=== PATIENT | female | born 1960 | race Caucasian/White ===

== ENCOUNTER 2018-06-13 05:05 | Emergency (ER) | payer OTHER ==
[~2018-06-13] VITALS: Ht 157.5 cm; Wt 94.8 kg
[~2018-06-13 05:05] MED LIST: ALLO100T PO; AMB5 PO; AMLO2.5T PO; APIX1TAB3 PO; ASPCH81X PO; COEN1CAP7 PO; LANS30TA3 PO; LIRA18IN SQ; METF-384 PO; METO50TA16 PO; MULT-513 PO; PRAV40TA2 PO; SITA100T3 PO; VITA400C15 PO; VITACAP36 PO
[2018-06-13 05:13] VITALS: TEMP 37.2; Ht 157.5 cm; Wt 94.8 kg
[2018-06-13] MEDS ORDERED: ONDANSETRON INJ 2 MG/ML 2 ML VIAL IV STA (05:27)
[2018-06-13] MEDS ORDERED: KETOROLAC TROMETHAMINE 30 MG/ML VIAL IV STA (05:27)
[2018-06-13 05:46] LABS: BASO % 0.3 %; BASO ABS # 0.04 K/uL (0-0.2); EOS ABS # 0.25 K/uL (0-0.5); HEMATOCRIT 39.4 % (37-47); HEMOGLOBIN 13.7 g/dL (12.0-16.0); IG# 0.05 K/uL (0.00-0.02); LYMPH % 18.2 %; LYMPH ABS # 2.31 K/uL (1.2-3.4); MEAN CORPUSCULAR HEMOGLOBIN 29.9 pg (25-34); MEAN CORPUSCULAR HGB CONC 34.8 g/dl (32-36); MEAN PLATELET VOLUME 9.9 fL (7.4-10.4); MONO % 10.2 %; MONO ABS # 1.29 K/uL (0.11-0.59); NEUT % 68.9 %; NEUT ABS # 8.73 K/uL (1.4-6.5); PLATELET COUNT 281 K/uL (130-400); RED CELL DISTRIBUTION WIDTH SD 41.1 fL (36.4-46.3); WHITE BLOOD COUNT 12.67 K/uL (4.8-10.8)
[2018-06-13 06:05] LABS: ALBUMIN 3.6 gm/dl (3.4-5.0); CALCIUM 9.6 mg/dl (8.5-10.1); CREATININE 0.99 mg/dl (0.60-1.20); POTASSIUM 3.6 mmol/L (3.5-5.1); TOTAL PROTEIN 8.1 gm/dl (6.4-8.2)
[2018-06-13] MEDS ORDERED: LINA1TAB PO (06:17)
[2018-06-13] MEDS ORDERED: LISI-787 PO ×2 (06:18→06:19)
[2018-06-13] MEDS ORDERED: METO50TA16 PO (06:23)
[2018-06-13] MEDS ORDERED: APIX1TAB3 PO (06:25)
[2018-06-13] MEDS ORDERED: VITA1CAP PO (06:29)
[2018-06-13] MEDS ORDERED: ASPI81TA28 PO (06:32)
[2018-06-13] MEDS ORDERED: BACL10TA PO (06:36)
--- NOTE | 2018-06-13 06:37 | EMERGENCY ROOM VISIT NOTE ---
History First contact with patient: 05:23 Chief Complaint: FLANK PAIN Stated Complaint: SEVERE LOW BACK PAIN ON RIGHT SIDE History of Present Illness The patient is a 58 year old female who presents to the Emergency Room with complaints of severe right flank pain that occasionally radiates to her groin has been intermittent for the past few days. Patient went to the family care doctor and had a negative urine test and was given baclofen. This is not helping per patient. She has a history of kidney stones and feels somewhat similar. No recent imaging. Patient describes the pain as aching, ranging in severity 8 out of 10. Nothing makes it better or worse. Patient denies chest pain, dyspnea, fever, chills, nausea, vomiting, urinary problems, injury to the area. Review of Systems An 10 system review of systems was completed with positives and pertinent negatives listed in the HPI. Past Medical/Surgical History Medical Problems: (1) Atrial fibrillation with RVR (2) DM type 2 (diabetes mellitus, type 2) (3) Dyslipidemia (4) GERD (gastroesophageal reflux disease) (5) Goiter (6) History of diverticulitis of colon (7) History of kidney stones (8) HTN (hypertension) (9) Nonalcoholic steatohepatitis (ZHOU) Surgical Problems: (1) H/O cystoscopy (2) History of hysterectomy (3) S/P partial colectomy (4) S/P tonsillectomy (5) S/P tubal ligation Family History Asthma FATHER Diabetes mellitus FATHER MOTHER SISTER FH: breast cancer AUNT Hypertension Stroke GRANDFATHER Social History Smoking Status: Former Smoker Drug Use: none Marital Status: Housing Status: lives with significant other Occupation Status: employed Current/Historical Medications Scheduled Amlodipine (Norvasc), 2.5 MG PO DAILY Apixaban (Eliquis), 5 MG PO BID Aspirin (Aspirin Ec), 81 MG PO DAILY Baclofen (Lioresal), 10 MG PO TID Coenzyme Q10 (Ubidecarenone) (Coq10), 200 MG PO DAILY Linagliptin (Tradjenta), 5 MG PO DAILY Liraglutide (Victoza), 1.2 ML SQ QAM Lisinopril/Hctz (Zestoretic 20MG/12.5MG), 1 TAB PO QAM Lisinopril/Hctz (Zestoretic 20MG/12.5MG), 0.5 TAB PO QPM Metformin Hcl (Glucophage), 1,000 MG PO BIDM Metoprolol Tartrate (Lopressor) (Lopressor), 50 MG PO QAM Metoprolol Tartrate (Lopressor) (Lopressor), 25 MG PO QPM Multivitamins/Minerals (Mvi With Minerals), 1 TAB PO DAILY Pravastatin Sodium (Pravastatin Sodium), 40 MG PO HS Vitamin E (E600), 600 UNITS PO DAILY Physical Exam Vital Signs Date Time Temp Pulse Resp B/P (MAP) Pulse Ox O2 Delivery O2 Flow Rate FiO2 06/13/18 05:13 37.2 90 18 121/83 96 Room Air Physical Exam VITALS: Vitals are noted on the nurse's note and reviewed by myself. Vital signs stable. GENERAL: Pleasant female who appears in pain, in no acute distress, nondiaphoretic, well-developed well-nourished. SKIN: The skin was without rashes, erythema, edema, or bruising. There is no tenting of the skin. Capillary reflex less than 2 seconds. HEAD: Normocephalic atraumatic. EARS: External auditory canals clear, tympanic membranes pearly mak without erythema or effusion bilaterally. EYES: Pupils equal round and reactive to light and accommodation. Conjunctivae without injection, sclerae without icterus. Extraocular movements intact. NOSE: Patent, turbinates without inflammation or discharge. MOUTH: Mucous membranes moist. Pharynx without erythema or exudate. Uvula midline. Airway patent. Tongue does not deviate. NECK: Supple without nuchal rigidity. No lymphadenopathy. No thyromegaly. Cervical spine is nontender. No JVD. HEART: Regular rate and rhythm without murmurs gallops or rubs. LUNGS: Clear to auscultation bilaterally without wheezes, rales or rhonchi. No retractions or accessory muscle use. ABDOMEN: Positive bowel sounds x 4. Normal tympanic percussion. Soft, nontender, without masses or organomegaly. Kapadia sign negative. No guarding or rebound tenderness. No CVA tenderness MUSCULOSKELETAL: No muscle atrophy, erythema, or edema noted. No thoracic or lumbar tenderness on exam. Patient can ambulate without difficulties. NEURO: Patient was alert and oriented to person place and time. Normal sensation to light and sharp touch. No focal neurological deficits. Medical Decision & Procedures Laboratory Results 06/13/18 05:37 Red Blood Count 4.58, Mean Corpuscular Volume 86.0, Mean Corpuscular Hemoglobin 29.9, Mean Corpuscular Hemoglobin Concent 34.8, Mean Platelet Volume 9.9, Neutrophils (%) (Auto) 68.9, Lymphocytes (%) (Auto) 18.2, Monocytes (%) (Auto) 10.2, Eosinophils (%) (Auto) 2.0, Basophils (%) (Auto) 0.3, Neutrophils # (Auto ) 8.73, Lymphocytes # (Auto) 2.31, Monocytes # (Auto) 1.29, Eosinophils # (Auto ) 0.25, Basophils # (Auto) 0.04 06/13/18 05:37 Test 06/13/18 05:30 06/13/18 05:37 Urine Color YELLOW Urine Appearance CLEAR (CLEAR) Urine pH 6.5 (4.5-7.5) Urine Specific [place] 1.011 (1.000-1.030) Urine Protein NEG (NEG) Urine Glucose (UA) NEG (NEG) Urine Ketones NEG (NEG) Urine Occult Blood NEG (NEG) Urine Nitrite NEG (NEG) Urine Bilirubin NEG (NEG) Urine Urobilinogen NEG (NEG) Urine Leukocyte Esterase NEG (NEG) Urine WBC (Auto) 1-5 /hpf (0-5) Urine RBC (Auto) 0-4 /hpf (0-4) Urine Hyaline Casts (Auto) 1-5 /lpf (0-5) Urine Epithelial Cells (Auto) >30 /lpf (0-5) Urine Bacteria (Auto) NEG (NEG) White Blood Count 12.67 K/uL (4.8-10.8) Red Blood Count 4.58 M/uL (4.2-5.4) Hemoglobin 13.7 g/dL (12.0-16.0) Hematocrit 39.4 % (37-47) Mean Corpuscular Volume 86.0 fL (80-100) Mean Corpuscular Hemoglobin 29.9 pg (25-34) Mean Corpuscular Hemoglobin Concent 34.8 g/dl (32-36) Platelet Count 281 K/uL (130-400) Mean Platelet Volume 9.9 fL (7.4-10.4) Neutrophils (%) (Auto) 68.9 % Lymphocytes (%) (Auto) 18.2 % Monocytes (%) (Auto) 10.2 % Eosinophils (%) (Auto) 2.0 % Basophils (%) (Auto) 0.3 % Neutrophils # (Auto) 8.73 K/uL (1.4-6.5) Lymphocytes # (Auto) 2.31 K/uL (1.2-3.4) Monocytes # (Auto) 1.29 K/uL (0.11-0.59) Eosinophils # (Auto) 0.25 K/uL (0-0.5) Basophils # (Auto) 0.04 K/uL (0-0.2) RDW Standard Deviation 41.1 fL (36.4-46.3) RDW Coefficient of Variation 13.0 % (11.5-14.5) Immature Granulocyte % (Auto) 0.4 % Immature Granulocyte # (Auto) 0.05 K/uL (0.00-0.02) Anion Gap 11.0 mmol/L (3-11) Est Creatinine Clear Calc Drug Dose 66.5 ml/min Estimated GFR () 72.8 Estimated GFR (Non- 62.8 BUN/Creatinine Ratio 12.1 (10-20) Calcium Level 9.6 mg/dl (8.5-10.1) Total Bilirubin 0.7 mg/dl (0.2-1) Direct Bilirubin 0.2 mg/dl (0-0.2) Aspartate Amino Transf (AST/SGOT) 28 U/L (15-37) Alanine Aminotransferase (ALT/SGPT) 37 U/L (12-78) Alkaline Phosphatase 84 U/L (45-117) Total Protein 8.1 gm/dl (6.4-8.2) Albumin 3.6 gm/dl (3.4-5.0) Medications Administered Medications (Trade) Dose Ordered Sig/Neela Route Start Time Stop Time Status Last Admin Dose Admin Ketorolac Tromethamine (Toradol Inj) 10 mg NOW STAT IV 06/13/18 05:27 06/13/18 05:28 DC 06/13/18 05:41 10 MG Ondansetron HCl (Zofran Inj) 4 mg NOW STAT IV 06/13/18 05:27 06/13/18 05:28 DC 06/13/18 05:40 4 MG ED Course Prior records/ancillary studies reviewed. Triage Nursing notes reviewed. Additional history obtained from the family. The patient's history was concerning for right flank pain. Differential diagnosis: Etiologies such as renal colic, appendicitis, diverticulitis, mesenteric ischemia, aortic pathology, infections, inflammatory bowel disease, PUD, biliary pathology, UTI, as well as others were entertained. Physical examination findings: As above. ER treatment provided: Toradol, Zofran On reassessment the patient felt better. Diagnostic interpretation by me: The labs revealed mild leukocytosis. Hyperglycemia without DKA. Urinalysis revealed There was no sign of UTI. Imaging studies: CT of the abdomen and pelvis as above. CT ABDOMEN & PELVIS Without Contrast: No evidence of acute abnormality in the abdomen or pelvis on noncontrast CT to account for right flank pain. Specifically, no hydronephrosis or ureteral calculus. No evidence of acute appendicitis. Status post hysterectomy. Fatty infiltration of the liver. Radiologist: Savannah Hampton MD It appears that the patient has right flank pain most likely muscle skeletal in nature. Patient was neurovascularly and neurologically intact. She is well- appearing. She was afebrile and nontoxic. She was advised to stretch the area and take NSAIDs as directed. She is advised to monitor blood sugar and follow- up this week with the family care doctor here in the ER sooner for severe pain, fevers, vomiting, worsening signs or symptoms or as needed. Patient had no UTI. Negative CAT scan for acute findings. By the evaluation outlined above emergent etiologies such as appendicitis, diverticulitis, mesenteric ischemia, aortic pathology, infections, inflammatory bowel disease, PUD, biliary pathology, UTI, as well as others were deemed relatively unlikely. The pt informed about the findings as listed above. All questions were answered and pleased with the treatment. Return instructions were outlined and the patient was discharged in stable condition. Outpatient prescription management: Oxy IR 5mg 1-2 po Q4 hrs prn Referral: The patient was referred back to their primary care physician for follow-up in 2 to 3 days for a recheck of the current condition. Case reviewed with my attending The chart was completed utilizing [employer] voice recognition software. Grammatical errors, random word insertions, pronoun errors, and incomplete sentences are an occassional consequence of this system due to software limitations, ambient noise, and hardware issues. Any formal questions or concerns about the content, text, or information contained within the body of this dictation should be directly addressed to the physician review assistant for clarification. Medical Decision As above [place] Drug Monitoring Program Search Results: patient reviewed within database, no issues identified Medication Reconcilliation Current Medication List: was personally reviewed by me Blood Pressure Screening Patient's blood pressure: Normal blood pressure Impression Primary Impression: Diabetes mellitus with hyperglycemia Additional Impression: Right flank pain Departure Information Dispostion Home / Self-Care Condition GOOD Referrals Melquiades Le D.O. (PCP) Patient Instructions My [facility] Additional Instructions DO NOT drive, drink alcohol, operate machinery, or perform dangerous activities today. You were given medications in the ER that can affect your ability to safely function or operate a vehicle. Oxycodone (OxyIR) 5mg: Take 1-2 pills every four hours for breakthrough pain. Avoid alcohol, operating machinery or dangerous equipment, working on ladders or roofs, DRIVING, or situations where being under the influence may be dangerous. It is recommended to use an [id number] stool softener such as Colace, 100mg twice daily while taking this medication to avoid constipation. Recommend yoga and/or Pilates for back pain to help strengthen uo your core. Recommend physical therapy to help strengthen up your core. Recommend a healthy weight. Acetaminophen(Tylenol) may be used for fever or pain. Use 1000mg every six hours as needed. Avoid using more than 3000mg in a 24 hour period. This medication can be taken if you need to drive, work, or perform activities which may be dangerous when taking narcotic pain medication. Rest and avoid heavy lifting until your symptoms resolve and then gradually return to full activity. A good rule of thumb is if it hurts your back to perform a certain activity, then it should be avoided until you are healthy again. A heating pad, warm compresses, or a hot shower may help with tight muscles and can be done several times a day as needed. Continue current medications. Return to the ER immediately for any numbness, tingling, severe pain, loss of control of your bowels or bladder, inability to walk, or as needed. Follow up with your primary care physician within 3-5 days for a recheck of your current condition. Problem Qualifiers Primary Impression: Diabetes mellitus with hyperglycemia Diabetes mellitus type: type 2 Diabetes mellitus halfway insulin use: with halfway use Qualified Codes: E11.65 - Type 2 diabetes mellitus with hyperglycemia; Z79.4 - snf (current) use of insulin
[2018-06-13] MEDS ORDERED: OXYCODONE IR HOME PACK PO ONE (06:45)
[2018-06-13 06:55] VITALS: BP 128/72; PULSE 78; O2SAT 96
--- NOTE | 2018-06-13 06:55 | DIAGNOSTIC IMAGING REPORT ---
CT OF THE ABDOMEN AND PELVIS WITHOUT CONTRAST, STONE PROTOCOL CLINICAL HISTORY: Right flank pain and. History of kidney stones. COMPARISON STUDY: Right upper quadrant ultrasound October 27, 2010. TECHNIQUE: Helical axial images of the abdomen and pelvis were obtained without IV or oral contrast according to renal stone protocol. A dose lowering technique was utilized adhering to the principles of ALARA. FINDINGS: Lung bases are clear. Fatty infiltration of the liver is noted. Unenhanced images of the spleen, adrenal glands and pancreas are normal. There is no hydronephrosis or hydroureter. No renal, ureteral or bladder calculi are identified. There is no evidence for a bowel obstruction. The appendix is normal. Small fat-containing umbilical hernia is noted. Prior sigmoid resection is noted. A chondroid lesion within the subtrochanteric portion of the left femur is indeterminate although likely reflects an enchondroma. IMPRESSION: 1. No urinary calculi or hydronephrosis. 2. Normal appendix. No bowel obstruction. 3. Fatty liver. Electronically signed by: Philip Burger M.D. 06/13/2018 6:54 AM Dictated Date/Time: 06/13/2018 6:45 AM
== END 2018-06-13 06:57 | disposition home or self-care (01) ==
LOC: C.EDB 05:06 → C.EDA 06:57
DX: E11.65 Type 2 diabetes mellitus with hyperglycemia (principal); Z79.4 Long term (current) use of insulin; R10.9 Unspecified abdominal pain; I48.91 Unspecified atrial fibrillation; E78.5 Hyperlipidemia, unspecified; K21.9 Gastro-esophageal reflux disease without esophagitis; I10 Essential (primary) hypertension; K75.81 Nonalcoholic steatohepatitis (NASH); Z87.891 Personal history of nicotine dependence; Z79.82 Long term (current) use of aspirin; Z79.899 Other long term (current) drug therapy